=== PATIENT | female | born 1970 | race Caucasian/White ===

== ENCOUNTER 2018-12-26 08:36 | Emergency (ER) | payer OTHER, SELFPAY | END 2018-12-26 09:03 | disposition home or self-care (01) | LOC: SCSER 08:36 | DX: J20.9 Acute bronchitis, unspecified (principal); I10 Essential (primary) hypertension; E11.9 Type 2 diabetes mellitus without complications; Z79.899 Other long term (current) drug therapy; Z79.84 Long term (current) use of oral hypoglycemic drugs ==